=== PATIENT | male | born 1990 | race Two or more races ===

== ENCOUNTER 2024-04-07 19:54 | Emergency (ER) | payer OTHER ==
[~2024-04-07] VITALS: Ht 160 cm; Wt 56.8 kg
[2024-04-07 20:23] VITALS: TEMP 97.4
[2024-04-07 21:04] LABS: BASOPHILS % (AUTO) 0.4 % (0-1); EOSINOPHILS % (AUTO) 0.1 % (0-6); HEMATOCRIT 41.8 % (42.0-52.0); HEMOGLOBIN 14.1 g/dl (14.0-17.9); LYMPHOCYTES # (AUTO) 0.6 X10'3 (1.1-4.8); LYMPHOCYTES % (AUTO) 9.4 % (21-51); MEAN CORPUSCULAR HEMOGLOBIN 30.6 PG (27.0-31.0); MEAN CORPUSCULAR HGB CONC 33.6 g/dL (33.0-36.5); MEAN PLATELET VOLUME 7.6 FL (7.4-10.4); MONOCYTES # (AUTO) 0.3 X10'3 (0-0.9); MONOCYTES % (AUTO) 4.4 % (2-12); NEUTROPHILS # (AUTO) 5.9 X10'3 (1.8-7.7); NEUTROPHILS % (AUTO) 85.7 % (42-75); PLATELET COUNT 216 X10'3 (140-440); RED CELL DISTRIBUTION WIDTH 13.8 % (11.5-14.5); WHITE BLOOD COUNT 6.9 X10'3 (4.5-11.0)
[2024-04-07] MEDS: metoclopramide 5 mg/ml inj IV ONE (21:06)
[2024-04-07] MEDS: normal saline 1000ML IV soln IVB ONE ×3 (21:06→22:37)
[2024-04-07] MEDS: diphenhydrAMINE 50 mg/ml inj IV ONE (21:06)
[2024-04-07] MEDS: insulin regular, human 10 units/0.1 ml syringe SQ ONE ×2 (21:11→22:37)
[2024-04-07 21:22] LABS: ALANINE AMINOTRANSFERASE 91 U/L (12-78); ALBUMIN 3.9 G/DL (3.4-5.0); ALBUMIN/GLOBULIN RATIO 0.8 (1.1-1.5); ALKALINE PHOSPHATASE 130 IU/L (46-116); ANION GAP 23 (8-16); ASPARTATE AMINO TRANSFERASE 72 U/L (10-37); BLOOD UREA NITROGEN 11 MG/DL (7-18); BUN/CREATININE RATIO 8.9 (10.0-20.0); CALCIUM 9.4 MG/DL (8.5-10.1); CHLORIDE 93 MMOL/L (99-107); CREATININE 1.24 MG/DL (0.60-1.10); LIPASE 38 U/L (16-77); POTASSIUM 4.2 MMOL/L (3.5-5.1); SODIUM 135 MMOL/L (135-145); TOTAL CARBON DIOXIDE 18.8 MMOL/L (24-32); TOTAL PROTEIN 8.5 G/DL (6.4-8.2); eCRCL 68 ML/MIN; eGFR 67 ML/MIN
[2024-04-07 21:35] LABS: GLUCOSE 420 MG/DL (70-104)
[2024-04-07] MEDS: potassium Cl 20 mEq SR tablet PO STA (21:36)
[2024-04-08] MEDS ORDERED: ONDA-243 PO (00:10)
[2024-04-08] MEDS ORDERED: LANTUS SQ (00:23)
[2024-04-08] MEDS: ketorolac tromethamine 15mg/ml inj. IV ONE (00:29)
[2024-04-08] MEDS: ondansetron/PF 4mg/2ml inj IV ONE (00:34)
[2024-04-08 00:55] VITALS: BP 118/82; PULSE 97; RESP 17; O2SAT 98
== END 2024-04-08 01:13 | disposition home or self-care (01) ==
LOC: ER 19:55
DX: R10.13 Epigastric pain (principal); R11.2 Nausea with vomiting, unspecified; E11.9 Type 2 diabetes mellitus without complications; F10.90 Alcohol use, unspecified, uncomplicated
CPT/HCPCS: 36415; 74176; 80053; 82948; 83690; 85025; 96361; 96372; 96374; 96375; 99285; J1200; J1815; J1885; J2405; J2765; J7030